=== PATIENT | male | born 1990 ===

== ENCOUNTER 2020-07-08 16:38 | Emergency (ER) | payer SELFPAY ==
[~2020-07-08] VITALS: Ht 162.6 cm; Wt 66.6 kg
[2020-07-08 16:44] VITALS: BP 127/85
[2020-07-08 18:54] LABS: BASOPHILS % (AUTO) 0 % (0-1); EOSINOPHILS % (AUTO) 1 % (1-7); LYMPHOCYTES % (AUTO) 33 % (22-44); MEAN CORPUSCULAR HEMOGLOBIN 30.1 pg (27.5-34.5); MEAN CORPUSCULAR HGB CONC 34.1 g/dL (33.2-36.2); MEAN PLATELET VOLUME 8.7 fL (7.4-10.4); MONOCYTES % (AUTO) 7 % (2-9); NEUTROPHILS % (AUTO) 59 % (42-75); PLATELET COUNT 340 x10^3/uL (130-400); RED BLOOD COUNT 5.34 x10^6/uL (4.38-5.82); RED CELL DISTRIBUTION WIDTH 12.3 % (9.4-14.8)
[2020-07-08 18:56] LABS: ALBUMIN 4.3 g/dL (3.4-5.0); ANION GAP 4 mmol/L (5-15); CALCIUM 9.2 mg/dL (8.5-10.1); CHLORIDE 105 mmol/L (98-107)
[2020-07-08 18:57] LABS: MD NO
[2020-07-08 19:01] LABS: ALANINE AMINOTRANSFERASE 32 U/L (12-78); ALKALINE PHOSPHATASE 154 U/L (45-117); BILIRUBIN,TOTAL 0.6 mg/dL (0.2-1.0); CREATININE 1.01 mg/dL (0.7-1.3); TOTAL PROTEIN 8.7 g/dL (6.4-8.2)
--- NOTE | 2020-07-08 19:20 | NUR ---
pt to room from lobby
[2020-07-08] MEDS ORDERED: FAMOTIDINE 20 MG TABLET PO ONE (20:00)
[2020-07-08] MEDS ORDERED: FAMOTIDINE 20 MG TABLET ONE (20:10)
--- NOTE | 2020-07-08 20:12 | NUR ---
Medicated per order, waiting for dc papers.
--- NOTE | 2020-07-08 20:49 | NUR ---
Pt dc ambulatory with instruct, pt verbalizes understanding of instruct. To return to ER if worse or concerns. VSS. steady gait.
== END 2020-07-08 20:50 | disposition home or self-care (01) ==
LOC: ED 20:00
DX: K21.9 Gastro-esophageal reflux disease without esophagitis (principal); R10.13 Epigastric pain; K59.00 Constipation, unspecified; Z72.9 Problem related to lifestyle, unspecified
CPT/HCPCS: 36415; 74021; 80053; 83690; 85025; 93005; 99285